=== PATIENT | female | born 1975 | race Caucasian/White ===

== ENCOUNTER → 2019-11-26 15:04 | Outpatient (CLI) | payer OTHER, MEDICAID, SELFPAY ==
[2019-11-26 15:56] LABS: Add Manual Diff / Slide Review NO; Basophils Absolute Auto 100 /uL (0-100); Basophils Percent Auto 0.5 % (0-2); Eosinophils Absolute Auto 100 /uL (0-450); Eosinophils Percent Auto 0.6 % (2-4); Hematocrit 42.2 % (36-46); Hemoglobin 13.7 g/dL (12.0-16.0); Lymphocytes Absolute Auto 3600 /uL (1100-4500); Lymphocytes Percent Auto 28.4 % (25-40); Mean Corpuscular HGB Conc 32.5 % (30-36); Mean Corpuscular Hemoglobin 29.8 PG (26-34); Mean Corpuscular Volume 91.5 fL (80-100); Monocytes Absolute Auto 1000 /uL (0-900); Monocytes Percent Auto 7.8 % (3-14); Neutrophils Absolute Auto 7900 /uL (1500-7000); Neutrophils Percent Auto 62.7 % (50-75); Platelet Count 424 X10^3/uL (150-400); Red Blood Cell Count 4.61 X10^6/uL (4.0-5.2); Red Cell Distribution Width 13.2 % (11.6-14.8); White Blood Cell Count 12.5 X10^3/uL (4.5-11.0)
== END ==
PROVIDERS: Family Provider Specialist; Referring Provider Specialist; Visit Provider Specialist
DX: N92.1 Excessive and frequent menstruation with irregular cycle (principal)
CPT/HCPCS: 36415; 85025

== ENCOUNTER → 2020-02-04 12:26 | Outpatient (CLI) | payer OTHER, MEDICAID, SELFPAY ==
[2020-02-05 09:44] LABS: COVID19 Sendout Not Detected (Not Detect)
== END ==
PROVIDERS: Family Provider Specialist; Visit Provider Student in an Organized Health Care Education/Training Program
DX: Z01.812 Encounter for preprocedural laboratory examination (principal)
CPT/HCPCS: 87635

== ENCOUNTER 2020-02-07 08:22 | Day surgery (SDC) | payer OTHER, MEDICAID, SELFPAY ==
[2020-02-05 09:27] VITALS: BMI 29.1
[2020-02-07] VITALS (10 sets, daily range): BP systolic 102–122; BP diastolic 56–77; PULSE 79–100; RESP 10–16; TEMP 36.1–36.6; O2SAT 93–99; BMI 29.1
--- NOTE | 2020-02-07 | PATH_ITS ---
[facility] Accession Number: [id number] . 01 Material submitted: . endometrium - ENDOMETRIAL BIOPSY . 02 Diagnosis: Endometrial Biopsy: Portions of myometrium, some with attached endometrium, consistent with submucosal leiomyoma, in the appropriate clinical context. There is no evidence of necrosis, cytologic atypia, or increased mitotic activity. Interval phase endometrium; negative for glandular hyperplasia, cytologic atypia, or malignancy. [facility] 02/11/2020 1106 Local . 02 Electronically signed: . Yazmin Mccray MD, Pathologist NPI- [id number] . 01 Gross description: . ENDOMETRIAL BIOPSY: Received in formalin are minute fragments of mucoid and hemorrhagic material measuring 1.5 x 1.0 x 0.4 cm in aggregate. Submitted in toto in 1 cassette. /MAI 02/08/2020 0024 Local . 02 Pathologist provided ICD-10: N92.0 . 02 CPT . 955134 Performed at: 01 [facility] [address], [place], [place] [id number] MD Gerard Yuan MD Phone: [phone] Performed at: 02 [facility] [address] [place], [place] [id number] MD Lisa Wall MD Phone: [phone]
[2020-02-07] MEDS: LACTATED RINGERS 1,000 ML 100 ML IV (09:58)
--- NOTE | 2020-02-07 10:54 | PM.PREOP ---
Pre-operative Note COVID-19 COVID-19 status: Negative Result date/Date tested (Pos, Neg/Pending): 02/04/20 Interval Note History & Physical reviewed/Exam performed by Physician: Yes Changes to H&P: No
--- NOTE | 2020-02-07 11:21 | SUR.OPER ---
Lithotomy on padded OR bed, head on pillow, arms secured on padded arm boards at <90 degrees abduction. Legs secured in padded yellow fins stirrups.
[2020-02-07] MEDS: ONDANSETRON 4 MG/2 ML INJ IV (11:57)
[2020-02-07] MEDS: fentaNYL 100 MCG/2 ML INJ IV ×3 (11:57→12:32)
[2020-02-07] MEDS: OXYCODONE/ACETAMINOPHEN 5/325 TABLET 1 TAB PO ×2 (11:57→12:32)
--- NOTE | 2020-02-07 12:03 | P.OP_ITS ---
Operative Date/Time/Diagnoses Date of procedure: 02/07/20 Time of procedure: 12:03 Pre-op diagnosis: Menorrhagia Post-op diagnosis: same Procedure & Clinicians Procedure: Hysteroscopy with at endometrial ablation by resection and cauterization Same procedure as scheduled: No (Originally schedule as NovaSure but the uterine cavity was too small ) Indications: Menorrhagia Surgeon: Marta Ruiz Click Yes if Unassisted: Yes Anesthesia Type: General Operative Notes Findings: Normal exam under anesthesia. Uterus sounded to 6 cm. No specific intrauterine abnormalities other than likely adenomyosis. Closure Type: not applicable Specimen(s): other (Endometrial tissue) Estimated Blood Loss (mL): 5 Blood products transfused: none Procedure in detail: The patient was brought to the operating room where she underwent general anesthesia. She was placed in low stirrups She was prepped and draped in usual sterile fashion with pulsatile stockings in place and functional, warming in place. No antibiotics were indicated A single-tooth tenaculum was placed on the anterior lip of the cervix and the uterus dilated to #8 Hegar dilator. The hysteroscope was placed into the uterus with a sorbitol solution running and under constant suction. The ball cautery set at 80 w of cutting was used to cauterize the fundus, tubal ostia, and the internal cervical os. The resecting loop set at 80 W of cutting was used to resect the endometrium. The ball c autery set at 60 w of coag was used to coagulate any bleeding areas. The endometrial tissue was sent to pathology. The patient went to recovery room in good condition counts of instruments and sponges were correct. Estimated blood loss less than 5 mL. The sorbitol solution I=O approximately 3000 mL. Complications: none Post-operative Disposition: same day surgery Plan for aftercare: Follow-up as needed
--- NOTE | 2020-02-07 12:35 | SUR.PHASEI ---
Gave patient pain medication for c\o pain. Patient tolerating po. Denies nausea.
== END 2020-02-07 13:20 | disposition home or self-care (01) ==
PROVIDERS: Family Provider Specialist; PCP Nurse Practitioner Family; Referring Provider Specialist; Visit Provider Specialist
PROC: 0U5B8ZZ Destruction of Endometrium, Via Natural or Artificial Opening Endoscopic (ICD-10-PCS; CPT 58563; principal; 2020-02-07 11:30)
DX: N92.0 Excessive and frequent menstruation with regular cycle (principal); R73.03 Prediabetes
CPT/HCPCS: 58563; J1100; J1885; J2250; J2405; J2704; J3010